=== PATIENT | male | born 1955 | race Caucasian/White ===

== ENCOUNTER 2023-05-07 09:33 | Emergency (ER) | payer MEDICARE, SELFPAY ==
[2023-05-07] VITALS (23 sets, daily range): BP systolic 124–204; BP diastolic 70–104; PULSE 105–119; TEMP 37.9; O2SAT 91–94; BMI 33.9
--- NOTE | 2023-05-07 10:09 | CRLHL7_ITS ---
For Patients: As a result of the Cures Act, medical imaging exams and procedure reports are released immediately into your electronic medical record. You may view this report before your referring provider. If you have questions, please contact your health care provider. INDICATION: right sided chest pain TECHNIQUE: Chest 2 views COMPARISON: None FINDINGS: Multilevel disc space narrowing and spurring throughout the thoracic spine. There is no fracture. Cardiac silhouette is not enlarged. No pleural effusion. Scarring at the right lateral lung. No consolidative density. Mild prominence of the bronchial live. IMPRESSION: Bronchiolitis suspected bilaterally with chronic appearing scarring at the right lateral lung. No CHF or pneumothorax. Dictated by Marvin Godinez MD @ 05/07/2023 10:53:41 AM (Electronically Signed)
[2023-05-07 10:36] LABS: PCR FLU A Negative PCR FLU A (Negative); PCR FLU B Negative PCR FLU B (Negative); PCR RSV Negative PCR RSV (Negative)
[2023-05-07 10:39] LABS: SARS PCR* POSITIVE SARS-CoV-2 (Negative)
[2023-05-07 10:52] LABS: Lactate* 1.2 mmol/L (0.5-1.9)
[2023-05-07] MEDS: 0.9 % SODIUM CHLORIDE 1000 ml 1,000 ML IV (10:53)
[2023-05-07 10:55] LABS: Basophils Absolute Auto 0.02 K/uL (0.00-0.30); Basophils Percent Auto 0.3 % (0.0-3.0); Eosinophils Absolute Auto 0.18 K/uL (0.00-0.50); Eosinophils Percent Auto 2.4 % (0.0-7.0); Hemoglobin* 16.2 gm/dL (13.5-17.5); Immature Granulocytes Abs Auto 0.02 K/uL (0.00-0.30); Immature Granulocytes Pct Auto 0.3 %; Lymphocytes Percent Auto 5.2 % (20-44); Mean Corpuscular HGB Conc 32 gm/dL (32-36); Mean Corpuscular Hemoglobin 29 pg (26-34); Mean Corpuscular Volume 89 fL (80-100); Neutrophils Percent Auto 79.8 % (42.0-72.0); Platelet Count* 172 K/uL (140-440); RDW Coefficient of Variation % 12.8 % (11.5-15.5); Red Blood Count 5.63 m/uL (4.30-5.90)
[2023-05-07 10:56] LABS: Appearance Urine Clear (Clear); Bilirubin Urine Negative (Negative); Blood Urine 2+ (Negative); Color Urine Yellow (Yellow); Glucose Urine Negative (Negative); Ketones Urine Negative (Negative); Leukocyte Esterase Urine Negative (Negative); Nitrite Urine Negative (Negative); Protein Urine 3+ (Negative); Specific Gravity Urine >= 1.030 (1.000-1.030); Urobilinogen Urine 0.2 (0.2-1.0); pH Urine 7.5 (5.0-8.5)
[2023-05-07] MEDS: IPRAT-ALBUT 0.5-2.5 MG/3 ML NEB 1 NEB IH (10:57)
[2023-05-07 10:59] LABS: Slide Review Reflex No
[2023-05-07 11:01] LABS: Troponin, Point-of-Care* 0.01 ng/ml (0.01-0.04)
[2023-05-07 11:09] LABS: WBC Urine 0-2 (0-5)
[2023-05-07 11:12] LABS: INR 0.97 (0.91-1.10); Prothrombin Time 13.4 Seconds
[2023-05-07 11:13] LABS: Partial Thromboplastin Time* 25 Seconds (23-33)
[2023-05-07 11:16] LABS: D Dimer Quantitative* 1.81 ug/ml (0.00-0.50)
[2023-05-07 11:22] LABS: Chloride* 103 mmol/L (96-114); Sodium* 138 mmol/L (135-149)
[2023-05-07 11:23] LABS: Albumin* 4.8 g/dL (3.3-5.0)
[2023-05-07 11:26] LABS: Alanine Aminotransferase* 39 U/L (4-50); Alkaline Phosphatase* 102 U/L (40-150); Anion Gap 8 mEq/L (7-15); Aspartate Amino Transferase* 44 U/L (12-35); Bilirubin Total* 1.2 mg/dL (0.1-1.5); Blood Urea Nitrogen* 15 mg/dL (7-30); Calcium* 9.5 mg/dL (8.4-10.6); Carbon Dioxide* 27 mmol/L (20-32); Creatinine* 0.9 mg/dL (0.5-1.5); Estimated Glomerular Filt Rate 93 ml/min; Glucose* 105 mg/dL (60-115); Lipase* 205 U/L (23-300); Total Protein* 8.3 g/dL (6.0-8.3)
--- NOTE | 2023-05-07 11:27 | ED_ITS ---
HPI - General Adult General Date Seen: 05/07/23 Chief complaint: Hypertension Stated complaint: BP 192/91 Time Seen by Provider: 05/07/23 09:36 Source: patient and family Mode of arrival: ambulatory Limitations: no limitations History of Present Illness HPI narrative: Patient is a 60-year-old gentleman visiting from [place], who has been sick for the past couple days, he noted that his blood pressure is elevated in the 190 range this morning, felt dizzy for the last 2 days, slight cough, and right- sided chest discomfort associated with this. History of previous pneumonia on the right-sided then had undergo a right-sided lung surgery for this. In the past. Does have a history of smoking in the past is quit for the last 5 years, no history of a previous cardiac issues, but does have a history of hypertension. They checked his COVID status yesterday, at home this was negative, brought in by his daughter in his son. He is here for a school reunion. Does have a cough, which she tells me is quite bad, does occasionally use inhaler. No history of COVID in the past, and is unsure about his vaccination status. Notes right-sided chest discomfort when he breathes or takes a deep breath in, maybe a little bit in his right upper quadrant of his abdomen also. No history of previous cholecystectomy. Associated symptoms: chest pain, cough, fever/chills, loss of appetite, malaise and weakness Related Data Home Medications Medication Instructions Recorded Confirmed Vitamin D3 05/07/23 amlodipine 10 mg tablet 10 mg PO DAILY 05/07/23 05/07/23 aspirin 81 mg tablet,delayed 81 mg PO DAILY 05/07/23 05/07/23 release (Adult Aspirin Regimen) atorvastatin 40 mg tablet 40 mg PO DAILY 05/07/23 05/07/23 carvedilol 3.125 mg tablet 3.125 mg PO BID 05/07/23 05/07/23 garlic 05/07/23 isosorbide mononitrate 30 mg 30 mg PO DAILY 05/07/23 05/07/23 tablet,extended release 24 hr losartan 25 mg tablet (Cozaar) 25 mg PO DAILY 05/07/23 05/07/23 multivitamin (Daily Multi-Vitamin 1 tab PO DAILY 05/07/23 05/07/23 tablet) tamsulosin 0.4 mg capsule 0.4 mg PO DAILY 05/07/23 05/07/23 Previous Rx's Medication Instructions Recorded albuterol sulfate 90 mcg/actuation 2 puff inhalation QID #8.5 grams 05/07/23 aerosol inhaler (ProAir HFA) cefuroxime axetil 500 mg tablet 500 mg PO BID 10 days #20 tabs 05/07/23 nirmatrelvir 300 mg (150 mg See Rx Instructions PO .COMPLEX 05/07/23 x2)-ritonavir 100 mg tablet,dose #30 ea pack (Paxlovid) prednisone 20 mg tablet 20 mg PO BID #10 tabs 05/07/23 Allergies Allergy/AdvReac Type Severity Reaction Status Date / Time No Known Drug Allergies Allergy Verified 05/07/23 13:08 Review of Systems Status of ROS: Reports: 10 or more systems reviewed and unremarkable except as noted in History and below [facility] Social History Smoking Status: Former smoker How often do you have a drink containing alcohol: monthly or less AUDIT-C Alcohol total score: 1 Non-prescribed substance use: marijuana (any form) Exam Narrative: Exam Narrative: Patient is seen in room 5, he is speaking to me in full sentences, is pupils are equal round reactive to light his TMs are normal his oropharynx normal, he has expiratory wheezes occasionally in all lung toscano, heart sounds are normal no clicks murmurs or gallops, no significant tachypnea, or increased work of breathing, mild right-sided upper abdomen tenderness with no organomegaly, abdomen shows no evidence of significant tenderness, negative Samano sign, no masses noted, no CVA tenderness, no normal inguinal regions with normal male genitalia, he moves extremities independently well no evidence of any swelling, pulses are normal is lower extremities, and no evidence of redness or rashes. Neurologically intact in his upper lower extremities. Const: Vital Signs, click to edit/add: Vital Signs - 24 hr 05/07/23 09:36 05/07/23 09:52 05/07/23 09:53 Temperature 100.2 F H Pulse Rate 106 H 108 H Pulse Rate [Pulse Oximeter] 115 H Blood Pressure 195/94 H Blood Pressure [Ri ght Upper Arm] 204/100 H Pulse Oximetry 93 93 94 Oxygen Delivery Me thod Room Air 05/07/23 10:00 05/07/23 10:02 05/07/23 10:08 Temperature Pulse Rate 115 H 110 H Pulse Rate [Pulse Oximeter] Blood Pressure 199/104 H Blood Pressure [Ri ght Upper Arm] Pulse Oximetry 94 94 92 Oxygen Delivery Me thod 05/07/23 10:30 05/07/23 10:32 05/07/23 11:00 Temperature Pulse Rate 108 H 112 H 107 H Pulse Rate [Pulse Oximeter] Blood Pressure 195/87 H Blood Pressure [Ri ght Upper Arm] Pulse Oximetry 93 92 94 Oxygen Delivery Me thod 05/07/23 11:30 05/07/23 11:32 05/07/23 11:33 Temperature Pulse Rate 114 H 114 H 112 H Pulse Rate [Pulse Oximeter] Blood Pressure 180/94 H Blood Pressure [Ri ght Upper Arm] Pulse Oximetry 92 92 93 Oxygen Delivery Me thod 05/07/23 12:00 05/07/23 12:02 05/07/23 12:35 Temperature Pulse Rate 115 H 119 H 109 H Pulse Rate [Pulse Oximeter] Blood Pressure 124/98 H Blood Pressure [Ri ght Upper Arm] Pulse Oximetry 92 92 92 Oxygen Delivery Me thod 05/07/23 13:10 05/07/23 13:32 05/07/23 13:45 Temperature Pulse Rate 112 H 113 H Pulse Rate [Pulse Oximeter] Blood Pressure 157/81 H Blood Pressure [Ri ght Upper Arm] Pulse Oximetry 92 91 Oxygen Delivery Me thod 05/07/23 14:00 05/07/23 14:02 05/07/23 14:03 Temperature Pulse Rate 112 H 110 H 110 H Pulse Rate [Pulse Oximeter] Blood Pressure 141/70 H Blood Pressure [Ri ght Upper Arm] Pulse Oximetry 92 92 92 Oxygen Delivery Me thod 05/07/23 14:30 05/07/23 14:32 Temperature Pulse Rate 108 H 105 H Pulse Rate [Pulse Oximeter] Blood Pressure 150/79 H Blood Pressure [Ri ght Upper Arm] Pulse Oximetry 93 91 Oxygen Delivery Me thod Documenting provider has reviewed patient's vital signs: yes Course Course ED Course: I spoke to below patient, and daughter. I do recommend that they take the Paxil of it, I did check with interaction supervisor food checkers and cashiers, ( liver pool) prednisone and also Ceftin were given, for as medications for his COPD flare, I gave a prescription for an inhaler also. I do recommend that he follow up with primary care physician when he gets home. From his visit here with his daughter. He is still having symptoms, he will need follow-up, there were some mildly enlarged lymph nodes noted on his CT scan, I do recommend that he follow up with his provider in consider getting a CT scan in 3 months to assess the stability of these. He was comfortable this, I went over the medications that he should hold, including is amlodipine, and also his atorvastatin while he is on the Paxlovid. He should know that he is contagious, and was planning on going to a reunion, we do recommend that she wait from time of start of illness, 10 total days. Return here if increasing chest pain shortness of breath or other issues. Vital Signs Vital signs: Initial Vital Signs Temperature 100.2 F H 05/07/23 09:36 Temperature Source Temporal Artery Scan 05/07/23 09:36 Pulse Rate 115 H 05/07/23 09:36 Blood Pressure 204/100 H 05/07/23 09:36 Blood Pressure Mean 134 H 05/07/23 09:36 Blood Pressure Position Sitting 05/07/23 09:36 Pulse Oximetry 93 05/07/23 09:36 Oxygen Delivery Method Room Air 05/07/23 09:36 Vital Signs Temperature 100.2 F H 05/07/23 09:36 Pulse Rate 115 H 05/07/23 09:36 Blood Pressure 204/100 H 05/07/23 09:36 Pulse Oximetry 93 05/07/23 09:36 Oxygen Delivery Method Room Air 05/07/23 09:36 Temperature 100.2 F H 05/07/23 09:36 Pulse Rate 105 H 05/07/23 14:32 Blood Pressure 150/79 H 05/07/23 14:32 Pulse Oximetry 91 05/07/23 14:32 Oxygen Delivery Method Room Air 05/07/23 09:36 Medical Decision Making MDM Narrative Medical decision making narrative: During the evaluation of this patient I considered multiple differential diagnosis is. The life-threatening differential diagnosis include coronary disease/IA, pulmonary embolism, pneumothorax, pneumonia, and aortic dissection. Other differential diagnosis included but were not limited to pericarditis, myocarditis, chest wall pain, GERD, esophageal rupture, rib fracture contusion, pleurisy, as well as other etiologies. Lab Data Lab results reviewed: Yes I reviewed the patient's lab results Labs: Lab Results 05/07/23 05/07/23 05/07/23 Range/Units 09:42 10:39 10:48 WBC 7.50 (4.50-11.00) K/uL RBC 5.63 (4.30-5.90) m/uL Hgb 16.2 (13.5-17.5) gm/dL Hct 50.0 (37.0-53.0) % MCV 89 (80-100) fL MCH 29 (26-34) pg MCHC 32 (32-36) gm/dL RDW Coeff of Pepper 12.8 (11.5-15.5) % Plt Count 172 (140-440) K/uL Neut % (Auto) 79.8 H (42.0-72.0) % Lymph % (Auto) 5.2 L (20-44) % Haines % (Auto) 12.0 H (0.0-11.0) % Eos % (Auto) 2.4 (0.0-7.0) % Baso % (Auto) 0.3 (0.0-3.0) % Neut # (Auto) 6.00 (1.7-7.0) K/uL Lymph # (Auto) 0.40 L (0.90-2.90) K/uL Haines # (Auto) 0.90 (0.00-0.90) K/UL Eos # (Auto) 0.18 (0.00-0.50) K/uL Baso # (Auto) 0.02 (0.00-0.30) K/uL Abs Immat Gran (auto) 0.02 (0.00-0.30) K/uL Imm/Tot Granulo (auto) 0.3 % INR 0.97 (0.91-1.10) APTT 25 (23-33) Seconds D-Dimer Quant (PE/DVT) 1.81 H (0.00-0.50) ug/ml Sodium 138 (135-149) mmol/L Potassium 4.0 (3.6-5.1) mmol/L Chloride 103 (96-114) mmol/L Carbon Dioxide 27 (20-32) mmol/L Anion Gap 8 (7-15) mEq/L BUN 15 (7-30) mg/dL Creatinine 0.9 (0.5-1.5) mg/dL Estimated Creat Clear 63.80 Estimated GFR 93 ml/min Glucose 105 (60-115) mg/dL Lactate 1.2 (0.5-1.9) mmol/L Calcium 9.5 (8.4-10.6) mg/dL Total Bilirubin 1.2 (0.1-1.5) mg/dL Direct Bilirubin 0.0 (0.0-0.5) mg/dL AST 44 H (12-35) U/L ALT 39 (4-50) U/L Alkaline Phosphatase 102 (40-150) U/L C-Reactive Protein 3.0 H (0.5-1.0) mg/dL NT-Pro-B Natriuret Pep 213 pg/mL Total Protein 8.3 (6.0-8.3) g/dL Albumin 4.8 (3.3-5.0) g/dL Lipase 205 (23-300) U/L Procalcitonin 0.07 (<0.50) ng/mL Urine Color (Yellow) Urine Appearance (Clear) Urine pH (5.0-8.5) Ur Specific Norphlet (1.000-1.030) Urine Protein (Negative) Urine Glucose (UA) (Negative) Urine Ketones (Negative) Urine Blood (Negative) Urine Nitrite (Negative) Urine Bilirubin (Negative) Urine Urobilinogen (0.2-1.0) Ur Leukocyte Esterase (Negative) Urine RBC (0-2) Urine WBC (0-5) Ur Squamous Epith Cells (None-Few) Urine Bacteria (None) SARS-CoV-2 (PCR) POSITIVE SARS-CoV-2 A (Negative) Influenza Type A (PCR) Negative PCR FLU A (Negative) Influenza Type B (PCR) Negative PCR FLU B (Negative) RSV (PCR) Negative PCR RSV (Negative) POC Troponin I 0.01 (0.01-0.04) ng/ml 05/07/23 05/07/23 Range/Units 14:45 Unknown WBC (4.50-11.00) K/uL RBC (4.30-5.90) m/uL Hgb (13.5-17.5) gm/dL Hct (37.0-53.0) % MCV (80-100) fL MCH (26-34) pg MCHC (32-36) gm/dL RDW Coeff of Pepper (11.5-15.5) % Plt Count (140-440) K/uL Neut % (Auto) (42.0-72.0) % Lymph % (Auto) (20-44) % Haines % (Auto) (0.0-11.0) % Eos % (Auto) (0.0-7.0) % Baso % (Auto) (0.0-3.0) % Neut # (Auto) (1.7-7.0) K/uL Lymph # (Auto) (0.90-2.90) K/uL Haines # (Auto) (0.00-0.90) K/UL Eos # (Auto) (0.00-0.50) K/uL Baso # (Auto) (0.00-0.30) K/uL Abs Immat Gran (auto) (0.00-0.30) K/uL Imm/Tot Granulo (auto) % INR (0.91-1.10) APTT (23-33) Seconds D-Dimer Quant (PE/DVT) (0.00-0.50) ug/ml Sodium (135-149) mmol/L Potassium (3.6-5.1) mmol/L Chloride (96-114) mmol/L Carbon Dioxide (20-32) mmol/L Anion Gap (7-15) mEq/L BUN (7-30) mg/dL Creatinine (0.5-1.5) mg/dL Estimated Creat Clear Estimated GFR ml/min Glucose (60-115) mg/dL Lactate (0.5-1.9) mmol/L Calcium (8.4-10.6) mg/dL Total Bilirubin (0.1-1.5) mg/dL Direct Bilirubin (0.0-0.5) mg/dL AST (12-35) U/L ALT (4-50) U/L Alkaline Phosphatase (40-150) U/L C-Reactive Protein (0.5-1.0) mg/dL NT-Pro-B Natriuret Pep pg/mL Total Protein (6.0-8.3) g/dL Albumin (3.3-5.0) g/dL Lipase (23-300) U/L Procalcitonin (<0.50) ng/mL Urine Color Yellow (Yellow) Urine Appearance Clear (Clear) Urine pH 7.5 (5.0-8.5) Ur Specific Norphlet >= 1.030 (1.000-1.030) Urine Protein 3+ A (Negative) Urine Glucose (UA) Negative (Negative) Urine Ketones Negative (Negative) Urine Blood 2+ A (Negative) Urine Nitrite Negative (Negative) Urine Bilirubin Negative (Negative) Urine Urobilinogen 0.2 (0.2-1.0) Ur Leukocyte Esterase Negative (Negative) Urine RBC 10-25 A (0-2) Urine WBC 0-2 (0-5) Ur Squamous Epith Cells None (None-Few) Urine Bacteria None (None) SARS-CoV-2 (PCR) (Negative) Influenza Type A (PCR) (Negative) Influenza Type B (PCR) (Negative) RSV (PCR) (Negative) POC Troponin I 0.02 (0.01-0.04) ng/ml Imaging Data CT scan - chest: Attestation: I have reviewed the pertinent imaging results. My impression: No acute changes Radiologist's impression: Patient: PRASANNA VICENTE Facility: [facility] Site . Site : 1955 Study: CT Chest Angio 95CC ISOVUE 370-05/07/2023 1:13:40 PM Ordering Physician: Alyson Turner Final Report: INDICATION: Short of breath, elevated D-dimer, Covid positive, history of lung cancer. TECHNIQUE: CT chest PE was acquired with 95 cc Isovue 370 IV contrast. Multiplanar reformats included. Maximum intensity projection in axial plane was also included to help with the detection of both pulmonary nodules and pulmonary emboli. COMPARISON: Same day chest radiograph. FINDINGS: Heart and vasculature: Contrast opacification of the pulmonary arterial tree is adequate. No sign of pulmonary embolism. Heart size is normal. Thoracic aorta and pulmonary artery are normal in caliber. Atherosclerotic calcifications of the coronary arteries and aortic arch. The proximal left main coronary artery is well opacified by contrast without embolus or thrombus seen. Lungs and pleura: Expiratory phase imaging. No tracheal or endobronchial abnormalities. Mild diffuse central bronchial thickening. Wedge resection in the posteromedial right upper lobe. Associated distortion and tethering without any worrisome nodular masslike thickening along the scar site. Pleural thickening with some early rounded atelectasis in the right lower lobe laterally. Minimal scarring in the lingula. No worrisome nodules or masses. No consolidations. No pleural effusion or pneumothorax. Lymph nodes/mediastinum: Lower right paratracheal lymph node measures 1.3 x 2.5 cm (series 4, image 62. Few mildly prominent left lower paratracheal lymph nodes and periaortic lymph nodes. No enlarged or worrisome appearing hilar or axillary lymph nodes. Chest wall: No masses. Upper abdomen: No acute or significant findings. Bones: Unremarkable for age. IMPRESSION: 1. No pulmonary embolus. 2. Postsurgical lungs without acute consolidations or opacification. Mild bronchial wall thickening may indicate airways infection. 3. Mildly enlarged right paratracheal lymph node, with other mildly prominent me diastinal lymph nodes. Recommend comparison with any available prior imaging from outside facilities. Please note that all CT scans at this facility use dose modulation, iterative reconstruction, and/or weight-based dosing when appropriate to reduce radiation dose to as low as reasonably achievable. Dictated by Kristan Daly MD @ 05/07/2023 3:29:31 PM (Electronic Signature) ECG Data Attestation: I personally reviewed and interpreted this ECG as follows: Prior ECG tracings: available for review Interpretation: EKG shows sinus tachycardia at 109, flipped T-waves in noted inferiorly in 2 3 and AVF, mild T-wave abnormality is noted T5 and T6, assessment and abnormal EKG, no previous EKG to compare to Discharge Plan Discharge Clinical Impression: COVID, COPD (chronic obstructive pulmonary disease) Patient Disposition: Home w/ Parent or Adult Condition: Stable Instructions: Wheezing (ED), COVID-19 (Coronavirus Disease 2019) (ED), COVID-19 and Chronic Health Conditions (ED), Face Coverings (Masks) and COVID-19 (ED), Social Distancing Guidelines for COVID-19 (ED) Additional Instructions: Home, rest, use of medications as directed, we will place you on some prednisone, along with the Ceftin antibiotic. Maybe some also bacterial pneumonia also. The COVID should improve with the treatment medications. I would suggest holding your amlodipine and also your atorvastatin. Both of these medications interact with the Paxlovid. Know that your contagious, until 5 days after you finish the Paxlovid. recheck with primary in 10 days after. Return if increasing chest pain shortness of breath or other issues. Activity Level: Light activity Prescriptions: New Paxlovid 300 mg (150 mg x 2)-100 mg tablets,dose pack See Rx Instructions .ROUTE .COMPLEX Qty: 30 0RF Rx Instructions: take TWO 150 mg tablets of nirmatrelvir with ONE 100 mg tablet of ritonavir twice daily for 5 days prednisone 20 mg tablet 20 mg PO BID Qty: 10 0RF cefuroxime axetil 500 mg tablet 500 mg PO BID 10 Days Qty: 20 0RF albuterol sulfate [ProAir HFA] 90 mcg/actuation HFA aerosol inhaler 2 puff inhalation QID Qty: 8.5 2RF No Action losartan [Cozaar] 25 mg tablet 25 mg PO DAILY atorvastatin 40 mg tablet 40 mg PO DAILY isosorbide mononitrate 30 mg tablet extended release 24 hr 30 mg PO DAILY carvedilol 3.125 mg tablet 3.125 mg PO BID Rx Instructions: must administer with a meal/food amlodipine 10 mg tablet 10 mg PO DAILY tamsulosin 0.4 mg capsule 0.4 mg PO DAILY aspirin [Adult Aspirin Regimen] 81 mg tablet,delayed release (DR/EC) 81 mg PO DAILY garlic Vitamin D3 multivitamin [Daily Multi-Vitamin] Tablet 1 tab PO DAILY Follow Up/Referrals: Provider,Not a Local [Primary Care Provider] - Stand Alone Forms: xPeerientth Info Instructions
[2023-05-07 11:43] LABS: NT Pro B Type NatriureticPept* 213 pg/mL; Procalcitonin* 0.07 ng/mL (<0.50)
--- NOTE | 2023-05-07 12:04 | CRLHL7_ITS ---
For Patients: As a result of the Century Cures Act, medical imaging exams and procedure reports are released immediately into your electronic medical record. You may view this report before your referring provider. If you have questions, please contact your health care provider. INDICATION: Short of breath, elevated D-dimer, Covid positive, history of lung cancer. TECHNIQUE: CT chest PE was acquired with 95 cc Isovue 370 IV contrast. Multiplanar reformats included. Maximum intensity projection in axial plane was also included to help with the detection of both pulmonary nodules and pulmonary emboli. COMPARISON: Same day chest radiograph. FINDINGS: Heart and vasculature: Contrast opacification of the pulmonary arterial tree is adequate. No sign of pulmonary embolism. Heart size is normal. Thoracic aorta and pulmonary artery are normal in caliber. Atherosclerotic calcifications of the coronary arteries and aortic arch. The proximal left main coronary artery is well opacified by contrast without embolus or thrombus seen. Lungs and pleura: Expiratory phase imaging. No tracheal or endobronchial abnormalities. Mild diffuse central bronchial thickening. Wedge resection in the posteromedial right upper lobe. Associated distortion and tethering without any worrisome nodular masslike thickening along the scar site. Pleural thickening with some early rounded atelectasis in the right lower lobe laterally. Minimal scarring in the lingula. No worrisome nodules or masses. No consolidations. No pleural effusion or pneumothorax. Lymph nodes/mediastinum: Lower right paratracheal lymph node measures 1.3 x 2.5 cm (series 4, image 62. Few mildly prominent left lower paratracheal lymph nodes and periaortic lymph nodes. No enlarged or worrisome appearing hilar or axillary lymph nodes. Chest wall: No masses. Upper abdomen: No acute or significant findings. Bones: Unremarkable for age. IMPRESSION: 1. No pulmonary embolus. 2. Postsurgical lungs without acute consolidations or opacification. Mild bronchial wall thickening may indicate airways infection. 3. Mildly enlarged right paratracheal lymph node, with other mildly prominent mediastinal lymph nodes. Recommend comparison with any available prior imaging from outside facilities. Please note that all CT scans at this facility use dose modulation, iterative reconstruction, and/or weight-based dosing when appropriate to reduce radiation dose to as low as reasonably achievable. Dictated by Kristan Daly MD @ 05/07/2023 3:29:31 PM (Electronically Signed)
[2023-05-07] MEDS: 0.9 % SODIUM CHLORIDE 500 ML 500 ML IV (12:37)
[2023-05-07] MEDS: ACETAMINOPHEN 500 MG TABLET 1000 MG PO (13:16)
[2023-05-07 15:15] LABS: Troponin, Point-of-Care* 0.02 ng/ml (0.01-0.04)
== END 2023-05-07 15:58 | disposition home or self-care (01) ==
PROVIDERS: Emergency Provider Family Medicine
DX: U07.1 COVID-19 (principal); J44.9 Chronic obstructive pulmonary disease, unspecified
CPT/HCPCS: 36415; 71046; 71275; 80048; 80076; 81001; 83605; 83690; 83880; 84145; 84484; 85025; 85379; 85610; 85730; 86140; 87040; 87631; 93005; 94640; 94761; 96360; 96361; 99284; 99285; A9270; J7030; J7120; Q9967

== ENCOUNTER 2024-01-28 11:43 | Emergency (ER) | payer MEDICARE, SELFPAY ==
[2024-01-28] VITALS (24 sets, daily range): BP systolic 145–169; BP diastolic 74–90; PULSE 59–102; RESP 18; TEMP 36.7; O2SAT 94–98; BMI 33.1
--- NOTE | 2024-01-28 12:01 | ED.DIZZY ---
HPI - Dizziness General Time Seen by Provider: 12:01 Date Seen: 01/28/24 Chief Complaint: Dizziness/Vertigo Stated Complaint: dizzy, hypertension Time Seen by Provider: 01/28/24 11:57 Source: patient, RN notes reviewed and old records reviewed Mode of arrival: ambulatory Limitations: no limitations History of Present Illness HPI Narrative: This 69-year-old male is referred from urgent care with concern of wanting to fall to the left side type feeling and dizziness for about 2 days now. [place], originally from here. He is felt this way for at least 2 days now. He baseline has tinnitus in both ears, unchanged. He states he had a similar episode about 20 years ago which was attributed to his hypertension. His blood pressures been more elevated outpatient recently, 180s over 90s. He is not fall in because of this, no trauma because of this. He has had some underlying palpitations and did just complete some cardiac monitoring when he was at home. He takes an 81 mg aspirin daily but is not on blood thinners otherwise. No recent cough cold symptoms, no chest pain or palpitations currently. He reportedly had an EKG showing sinus rhythm in urgent care but it is not scanned in. He had a normal hemoglobin of 13.5, normal white blood count of 8470, normal platelet count of 133774, normal sodium of 143, normal potassium of 4.1, normal chloride of 107, normal bicarb of 27, normal BUN of 19, normal creatinine of 1.1, normal ionized calcium of 1.23 and normal glucose of 117 while at urgent care. In her examination, she noted no nystagmus his heart rate was regular and no murmur. She felt his gait was abnormal. There is no prior history of stroke, TIA or heart attack. His maternal side of the family has significant cardiac history. Denies any visual changes with this. Patient does have visible appearing symmetrical proptosis but denies any history of thyroid disease. He does take a baby aspirin daily but otherwise on no blood thinners. When he is up he feels like he is listing to the left. If he turns his head or moves, will feel a spinning sensation. For example, when he laid on the table in Urgent Care, the movement laying back made him see that the ceiling was spinning. He will get a little relief if he closes his eyes in lays still. MD elicited complaint: vertigo and disequilibrium Related Data Home Medications ?Medication ?Instructions ?Recorded ?Confirmed Vitamin D3 3,000 unit PO DAILY 05/07/23 01/28/24 aspirin 81 mg tablet,delayed 81 mg PO DAILY 05/07/23 01/28/24 release (Adult Aspirin Regimen) atorvastatin 40 mg tablet 40 mg PO DAILY 05/07/23 01/28/24 garlic 3,000 unit PO DAILY 05/07/23 01/28/24 isosorbide mononitrate 30 mg 30 mg PO DAILY 05/07/23 01/28/24 tablet,extended release 24 hr losartan 25 mg tablet (Cozaar) 25 mg PO DAILY 05/07/23 01/28/24 multivitamin (Daily Multi-Vitamin 1 tab PO DAILY 05/07/23 01/28/24 tablet) tamsulosin 0.4 mg capsule 0.4 mg PO DAILY 05/07/23 01/28/24 amlodipine 10 mg tablet 5 mg PO DAILY 01/28/24 01/28/24 cinnamon bark 500 mg capsule 1,000 mg PO QDAY 01/28/24 01/28/24 (Cinnamon) metoprolol succinate 50 mg 50 mg PO DAILY 01/28/24 01/28/24 tablet,extended release 24 hr nitroglycerin 0.4 mg sublingual 0.4 mg sublingual PRN 01/28/24 01/28/24 tablet testosterone 1 % (25 mg/2.5 gram) 1 packet transdermal 01/28/24 01/28/24 transdermal gel packet tramadol 50 mg tablet 50 mg PO BID PRN 01/28/24 01/28/24 Previous Rx's ?Medication ?Instructions ?Recorded albuterol sulfate 90 mcg/actuation 2 puff inhalation QID #8.5 grams 05/07/23 aerosol inhaler (ProAir HFA) meclizine 25 mg tablet 25 mg PO TID PRN #15 tabs 01/28/24 Allergies Allergy/AdvReac Type Severity Reaction Status Date / Time cortisone Allergy Mild itchy eyes Verified 01/28/24 11:53 and red face Review of Systems Status of ROS: Reports: 6 or more systems reviewed and unremarkable except as noted in History and below [facility] Medical History (Updated 01/28/24 @ 15:43 by Jade King MD) Hypertension ?I10 - Essential (primary) hypertension (ICD-10) Social History Smoking Status: Former smoker How often do you have a drink containing alcohol: monthly or less AUDIT-C Alcohol total score: 1 Non-prescribed substance use: marijuana (any form) Exam Const: Vital Signs, click to edit/add: Vital Signs - 24 hr 01/28/24 11:45 01/28/24 11:58 01/28/24 11:59 Temperature 98.1 F Pulse Rate 62 63 Pulse Rate [Pulse Oximeter] 102 H Respiratory Rate 18 Blood Pressure 169/82 H Blood Pressure [Ri ght Upper Arm] 164/74 H Pulse Oximetry 98 94 97 Oxygen Delivery Me thod Room Air 01/28/24 12:00 01/28/24 12:02 01/28/24 12:03 Temperature Pulse Rate 62 63 61 Pulse Rate [Pulse Oximeter] Respiratory Rate Blood Pressure 160/77 H Blood Pressure [Ri ght Upper Arm] Pulse Oximetry 96 95 97 Oxygen Delivery Me thod 01/28/24 12:09 01/28/24 12:15 01/28/24 12:38 Temperature Pulse Rate 61 61 Pulse Rate [Pulse Oximeter] Respiratory Rate Blood Pressure Blood Pressure [Ri ght Upper Arm] Pulse Oximetry 97 97 97 Oxygen Delivery Me thod 01/28/24 12:45 01/28/24 13:00 01/28/24 13:02 Temperature Pulse Rate 61 59 L 61 Pulse Rate [Pulse Oximeter] Respiratory Rate Blood Pressure 148/81 H Blood Pressure [Ri ght Upper Arm] Pulse Oximetry 97 97 96 Oxygen Delivery Me thod 01/28/24 13:03 01/28/24 14:15 01/28/24 14:17 Temperature Pulse Rate 63 Pulse Rate [Pulse Oximeter] Respiratory Rate Blood Pressure 157/87 H Blood Pressure [Ri ght Upper Arm] Pulse Oximetry 97 96 Oxygen Delivery Me thod 01/28/24 14:51 01/28/24 14:52 01/28/24 15:00 Temperature Pulse Rate 63 68 59 L Pulse Rate [Pulse Oximeter] Respiratory Rate Blood Pressure 154/81 H Blood Pressure [Ri ght Upper Arm] Pulse Oximetry 95 96 96 Oxygen Delivery Me thod 01/28/24 15:01 Temperature Pulse Rate 59 L Pulse Rate [Pulse Oximeter] Respiratory Rate Blood Pressure 145/83 H Blood Pressure [Ri ght Upper Arm] Pulse Oximetry 95 Oxygen Delivery Me thod Jr is alert, interactive, no apparent distress. Symmetrical facial function, eyes do seem symmetrically proptotic. One to 2 beats of lateral nystagmus on each lateral gaze but has conjugate gaze. No visual disturbances. Speech is normal. Neck supple, no adenopathy, seems to have symmetrical carotid pulses, do not hear any bruits. Lungs clear without any wheezing or crackles, no tachypnea. Speech is normal. CV regular rate and rhythm, no murmur. Abdomen is soft, no rebound or guarding, no organomegaly. Has no resting tremors. Can lift each leg off the bed and hold it. No lower extremity sensory loss. Good strength throughout the ankles and feet. Arms with 5/5 symmetrical strength from shoulders down to fingers. Normal sensation in the arms. He has normal finger to nose without any drift or dysmetria. Skin visualized without any rash, skin is warm and dry. Documenting provider has reviewed patient's vital signs: yes Course Course ED Course: Have ordered head CT and CT angio of head and neck. Will get some other labs that have not been done in urgent care including PT PTT, liver panel. Reevaluation(s) Time of Reevaluation #1: 13:36 Reevaluation #1: Reviewed with patient that there is an old stroke in the thalamus on his head CT. I have paged stroke Neurology to talk about his case further, am going to hold on the CT angios at this time and see if they would rather proceed with MRI. He is wondering if he can eat, his symptoms have been present for over 2 days, will allow him to eat. Time of Reevaluation #2: 15:45 Reevaluation #2: Reviewed his MRI report showing no acute stroke. He does have chronic microvascular changes and the prior small stroke seen as on the CT. Patient wanted to know how old it might have been, reviewed with him that we have no way of aging it from the study. We discussed the need for ongoing risk factor modification and staying on an 81 mg aspirin. His blood pressure needs to be treated to goal recommendations, LDL should be under 70 for him. We discussed a peripheral vertigo, will try dose of meclizine. He plans on going back within the next week. He can consider physical therapy when he gets home if he still needs it. Consultations Consultation #1: Did speak with Dr. Salgado from stroke Neurology regarding this patient. Given old stroke, patient certainly needs aspirin and risk factor suppression/modification. MRI noncontrast can be done to rule out stroke, can try Tekoa-Hallpike maneuvers. If MRI is negative, patient can go home and be treated for peripheral vertigo process. Time: 14:04 Vital Signs Vital signs: Initial Vital Signs Temperature 98.1 F 01/28/24 11:45 Temperature Source Temporal Artery Scan 01/28/24 11:45 Pulse Rate 102 H 01/28/24 11:45 Respiratory Rate 18 01/28/24 11:45 Blood Pressure 164/74 H 01/28/24 11:45 Blood Pressure Mean 104 01/28/24 11:45 Blood Pressure Position Sitting 01/28/24 11:45 Pulse Oximetry 98 01/28/24 11:45 Oxygen Delivery Method Room Air 01/28/24 11:45 Vital Signs Temperature 98.1 F 01/28/24 11:45 Pulse Rate 102 H 01/28/24 11:45 Respiratory Rate 18 01/28/24 11:45 Blood Pressure 164/74 H 01/28/24 11:45 Pulse Oximetry 98 01/28/24 11:45 Oxygen Delivery Method Room Air 01/28/24 11:45 Temperature 98.1 F 01/28/24 11:45 Pulse Rate 59 L 01/28/24 15:01 Respiratory Rate 18 01/28/24 11:45 Blood Pressure 145/83 H 01/28/24 15:01 Pulse Oximetry 95 01/28/24 15:01 Oxygen Delivery Method Room Air 01/28/24 11:45 MDM - Dizziness Lab Data Attestation: I reviewed the patient's lab results. Labs: Lab Results 01/28/24 01/28/24 Range/Units 12:15 13:20 INR 0.96 (0.91-1.10) APTT 33 (23-33) Seconds Creatinine 1.0 (0.5-1.5) mg/dL Estimated Creat Clear 62.91 Estimated GFR 81 ml/min Magnesium 2.3 (1.5-2.6) mg/dL Total Bilirubin 1.3 (0.1-1.5) mg/dL Direct Bilirubin 0.3 (0.0-0.5) mg/dL AST 29 (12-35) U/L ALT 30 (4-50) U/L Alkaline Phosphatase 79 (40-150) U/L Troponin I < 0.01 L (0.01-0.04) ng/mL NT-Pro-B Natriuret Pep 207 pg/mL Total Protein 6.9 (6.0-8.3) g/dL Albumin 4.4 (3.3-5.0) g/dL TSH 0.976 (0.270-4.200) uIU/mL Lab Acknowledgement Test Added Imaging Data CT scan - head: Attestation: I have reviewed the pertinent imaging results. Radiologist's impression: Patient: JR VICENTE Facility:?[facility] Patient ID:?[id number] Site Patient ID:?[id number]. Site :?[id number] Study:?CT-Head WITHOUT-01/28/2024 12:37:54 PM Ordering Physician:Edy Hansen Final Report: INDICATION: Vertigo, disequilibrium TECHNIQUE: CT head without contrast. COMPARISON: None. FINDINGS: CSF spaces: Within normal limits for age. Brain parenchyma: The cruz-white differentiation is normal. No sign of mass, hemorrhage, or midline shift. Moderate low-density within the deep white matter. Old lacunar infarct within the right thalamus. Skull base and calvarium: The visualized paranasal sinuses and mastoid air cells demonstrate no acute or significant findings. Atherosclerosis. Mild bilateral proptosis. No skull fractures. IMPRESSION: 1. No intracranial bleed or mass effect. 2. Old right thalamic lacunar infarct with nonspecific white matter disease, likely microangiopathy. 3. Mild bilateral proptosis noted. Please note that all CT scans at this facility use dose modulation, iterative reconstruction, and/or weight-based dosing when appropriate to reduce radiation dose to as low as reasonably achievable. Dictated by Nilesh Blum MD @ 01/28/2024 1:09:46 PM (Electronic Signature) MR Brain: Attestation: I have reviewed the pertinent imaging results. Radiologist's impression: Patient: JR VICENTE Facility:?[facility] Patient ID:?[id number] Site Patient ID:?[id number]. Site :?1955 Study:?MRI-Head W/O-01/28/2024 3:14:09 PM Ordering Physician:Edy Hansen Final Report: Indication: Vertigo. Technique: Multiplanar, multisequence MRI of the brain was performed without intravenous contrast. Comparison: CT head 01/28/2024. Findings: Mild thinning of the corpus callosum. The pituitary gland clivus appear intact. Mild degenerative change visualized upper cervical spine. There is no restricted diffusion. No intracranial hemorrhage. The ventricles are proportionate to the cerebral sulci. The 4th ventricle appears midline. The basal cisterns appear patent. No abnormal extra-axial fluid collection identified. Mild parenchymal volume loss. Moderate T2 FLAIR hyperintense foci within the subcortical and periventricular white matter, favored to represent chronic ischemic microvascular disease. Small chronic lacunar infarct right thalamus. There is no intracranial mass, abnormal mass-effect or midline shift identified. Major intracranial vascular flow voids appear grossly intact. Both globes are preserved. Minimal paranasal sinus mucosal thickening. Impression: 1. No acute/subacute infarct. 2. Moderate chronic ischemic microvascular disease. 3. Small chronic right thalamic lacunar infarct. Dictated by Ty Jolly MD @ 01/28/2024 3:24:09 PM (Electronic Signature) ECG Data Attestation: I personally reviewed and interpreted this ECG as follows: (Normal sinus rhythm, 60 beats per minute. Q-waves V1 V2 without any acute ST or T-wave changes. No evidence of any acute ischemia. QT corrected 3 and 74 milliseconds.) ECG interpretation date: 01/28/24 ECG interpretation time: 12:38 Critical Care Time Critical Care Time Critical Care Time: No Discharge Plan Discharge Clinical Impression: Vertigo, Disequilibrium Patient Disposition: Home, Self-Care Condition: Stable Instructions: Vertigo (ED) Additional Instructions: Can try meclizine 25 mg up to 3 times a day as needed for your symptoms. This can be sedating, need to see how it affects you. Would not recommend operating machinery or driving if it makes you sedated. The MRI confirms that this is a peripheral ear process. Physical therapy can help in resolving this, can seek further evaluation when home if you have ongoing symptoms. You may expect that your symptoms may last for 1-2 weeks as this seems beyond benign paroxysmal peripheral vertigo and is likely a vestibulitis or labyrinthitis from the inner ear. There is no quick fix for this unfortunately and takes time to resolve. Take your MRI report to your primary clinic when you get home. Your LDL goal should be under 70, blood pressure should be treated to current goal recommendations. You need to stand an 81 mg aspirin daily. Activity Level: Activity as Tolerated Discharge Diet: Heart Healthy (2 gm sodium, low fat) Prescriptions: New meclizine 25 mg tablet 25 mg PO TID PRNQty: 15 0RF No Action metoprolol succinate 50 mg tablet extended release 24 hr 50 mg PO DAILY nitroglycerin 0.4 mg tablet, sublingual 0.4 mg sublingual PRN testosterone 1 % (25 mg/2.5gram) gel in packet 1 packet transdermal cinnamon bark [Cinnamon] 500 mg capsule 1,000 mg PO QDAY tramadol 50 mg tablet 50 mg PO BID PRN losartan [Cozaar] 25 mg tablet 25 mg PO DAILY atorvastatin 40 mg tablet 40 mg PO DAILY isosorbide mononitrate 30 mg tablet extended release 24 hr 30 mg PO DAILY tamsulosin 0.4 mg capsule 0.4 mg PO DAILY aspirin [Adult Aspirin Regimen] 81 mg tablet,delayed release (DR/EC) 81 mg PO DAILY garlic 3,000 unit PO DAILY Vitamin D3 3,000 unit PO DAILY multivitamin [Daily Multi-Vitamin] Tablet 1 tab PO DAILY albuterol sulfate [ProAir HFA] 90 mcg/actuation HFA aerosol inhaler 2 puff inhalation QID Qty: 8.5 2RF amlodipine 10 mg tablet 5 mg PO DAILY Follow Up/Referrals: Provider,Not a Local [Primary Care Provider] - Stand Alone Forms: [employer] Info Instructions
--- NOTE | 2024-01-28 12:09 | CRLHL7_ITS ---
For Patients: As a result of the Century Cures Act, medical imaging exams and procedure reports are released immediately into your electronic medical record. You may view this report before your referring provider. If you have questions, please contact your health care provider. INDICATION: Vertigo, disequilibrium TECHNIQUE: CT head without contrast. COMPARISON: None. FINDINGS: CSF spaces: Within normal limits for age. Brain parenchyma: The cruz-white differentiation is normal. No sign of mass, hemorrhage, or midline shift. Moderate low-density within the deep white matter. Old lacunar infarct within the right thalamus. Skull base and calvarium: The visualized paranasal sinuses and mastoid air cells demonstrate no acute or significant findings. Atherosclerosis. Mild bilateral proptosis. No skull fractures. IMPRESSION: 1. No intracranial bleed or mass effect. 2. Old right thalamic lacunar infarct with nonspecific white matter disease, likely microangiopathy. 3. Mild bilateral proptosis noted. Please note that all CT scans at this facility use dose modulation, iterative reconstruction, and/or weight-based dosing when appropriate to reduce radiation dose to as low as reasonably achievable. Dictated by Nilesh Blum MD @ 01/28/2024 1:09:46 PM (Electronically Signed)
--- OUTSIDE RECORDS SUMMARY | 2024-01-28 12:23 | XMS_ITS | Referral Summary ---
Author Organization [facility] Address [address] [place] [address] Care Team Providers Care Electric Motor Mechanic Name Role Phone Mitesh Benson Primary Care Provider [phone] Allergies Active Allergy Reactions Criticality Noted Date Comments Mushroom Pruritis (Itching) Low 06/20/2015 Wild mushrooms Medications Medication Sig Dispensed Refills Start Date End Date Status losartan-hydrochloro thiazide (HYZAAR) 50-12.5 mg per tablet Take 0.5 tablets by mouth daily Active Garlic 500 mg Cap Take 1,500 mg by mouth daily Active aspirin 81 mg EC tablet Take 81 mg by mouth daily Active tamsulosin (FLOMAX) 0.4 mg capsule Take 0.4 mg by mouth daily Active albuterol (PROVENTIL/VENTOLIN/ PROAIR) 90 mcg/actuation inhaler 2 puffs inhaled q4-6 hours prn SOB or wheezing 08/17/2015 Active atorvastatin (LIPITOR) 10 mg tablet Take 4 tablets (40 mg total) by mouth at bedtime 30 tablet 11 12/09/2015 Active metoprolol succinate (TOPROL-XL) 25 mg XL tablet Take 0.5 tablets (12.5 mg total) by mouth daily 30 tablet 11 12/09/2015 Active amLODIPine (NORVASC) 5 mg tablet 05/22/2016 Active GLUCOSAMINE HCL/CHONDR HARTLEY A NA (OSTEO BI-FLEX ORAL) Take by mouth A ctive Active Problems Problem Noted Date Diagnosed Date Sleep apnea Immunizations Name Administration Dates Next Due Tdap 06/20/2015 Social History Tobacco Use Types Packs/Day Years Used Date Smoking Tobacco: Every Day Cigarettes 0.5 54 Smokeless Tobacco: Never Alcohol Use Standard Drinks/Week Comments No 0 (1 standard drink = 0.6 oz pur e alcohol) Sex and Gender Information Value Date Recorded Sex Assigned at Not on file Gender Identity Not on file Sexual Orientation Not on file Last Filed Vital Signs Vital Sign Reading Time Taken Comments Blood Pressure 164/94 06/01/2016 8:57 AM PDT LA Pulse 111 06/01/2016 8:57 AM PDT Temperature 36.3 ??C (97.3 ??F) 12/09/2015 3:17 PM PD T Respiratory Rate 18 06/01/2016 8:57 AM PDT Oxygen Saturation 95% 06/01/2016 8:57 AM PDT Ra Inhaled Oxygen Concentration - - Weight 83 kg (183 lb) 06/01/2016 8:57 AM PDT Height 167.6 cm (5' 6) 06/01/2016 8:57 AM PDT Body Mass Index 29.54 06/01/2016 8:57 AM PDT Plan of Treatment Not on file Advance Directives Documents on File Type Date Recorded Patient Director Bioinformatics Expl anation Advance/Healthcare Directive 12/09/2015 9:48 AM Care Teams Electric Motor Mechanic Relationship Specialty Start Date End Date Mtiesh Benson DO PCP - General Family Practice 06/01/16
--- OUTSIDE RECORDS SUMMARY | 2024-01-28 12:23 | XMS_ITS | Clinical Summary ---
Author Organization [facility] Address [address] [place] [address] Care Team Providers Care Human Resource Internship Name Role Phone Mitesh Benson Primary Care Provider [phone] Allergies Active Allergy Reactions Criticality Noted Date [...] 06/01/2016 8:57 AM PDT Plan of Treatment Health Maintenance Due Date Last Done Comments AAA Screening 1955 CT Colonography 1955 Colonoscopy 1955 Colorectal Cancer Screening 1955 FIT / FOBT 1955 FIT-DNA 1955 Hepatitis C Ab Screening 1955 Sigmoidoscopy 1955 Depression Screening (PHQ/EPDS) 1967 Tobacco Cessation Counseling 1967 Lipid Screening 1990 Zoster Vaccine (1 of 2) 2005 RSV Vaccine (1 - 1-dose 60+ series) 2015 Pneumo Vaccine 65+ yrs (1 of 1 - PCV) 01/04/2020 COVID-19 Vaccine ( - 2022-2 4 season) 2023 Influenza Vaccine (Season Ended) 2024 Tetanus Vaccine 06/20/2025 06/20/2015 Hepatitis A Vaccine Aged Out No longe r eligible based on patient's age to complete this topic Hepatitis B Vaccine Aged Out No longe r eligible based on patient's age to complete this topic Hib Vaccine Aged Out No longer eligi ble based on patient's age to complete this topic Meningococcal ACWY Vaccine Aged Out N o longer eligible based on patient's age to complete this topic Advance Directives Documents on File Type Date Recorded Patient Casket Inspector Expl anation Advance/Healthcare Directive 12/09/2015 9:48 AM Care Teams Human Resource Internship Relationship Specialty Start Date End Date Mitesh Benson DO PCP - General Family Practice 06/01/16
[2024-01-28 12:38] LABS: Albumin* 4.4 g/dL (3.3-5.0)
[2024-01-28 12:40] LABS: INR 0.96 (0.91-1.10); Prothrombin Time 13.3 Seconds
[2024-01-28 12:41] LABS: Alanine Aminotransferase* 30 U/L (4-50); Alkaline Phosphatase* 79 U/L (40-150); Aspartate Amino Transferase* 29 U/L (12-35); Bilirubin Direct* 0.3 mg/dL (0.0-0.5); Bilirubin Total* 1.3 mg/dL (0.1-1.5); Magnesium* 2.3 mg/dL (1.5-2.6); Partial Thromboplastin Time* 33 Seconds (23-33); Total Protein* 6.9 g/dL (6.0-8.3)
[2024-01-28 12:54] LABS: NT Pro B Type NatriureticPept* 207 pg/mL; Troponin I* < 0.01 ng/mL (0.01-0.04)
[2024-01-28 13:14] LABS: Est. Creatinine Clearance* 62.91; Estimated Glomerular Filt Rate 81 ml/min
--- NOTE | 2024-01-28 14:09 | CRLHL7_ITS ---
For Patients: As a result of the Cures Act, medical imaging exams and procedure reports are released immediately into your electronic medical record. You may view this report before your referring provider. If you have questions, please contact your health care provider. Indication: Vertigo. Technique: Multiplanar, multisequence MRI of the brain was performed without intravenous contrast. Comparison: CT head 01/28/2024. Findings: Mild thinning of the corpus callosum. The pituitary gland clivus appear intact. Mild degenerative change visualized upper cervical spine. There is no restricted diffusion. No intracranial hemorrhage. The ventricles are proportionate to the cerebral sulci. The 4th ventricle appears midline. The basal cisterns appear patent. No abnormal extra-axial fluid collection identified. Mild parenchymal volume loss. Moderate T2 FLAIR hyperintense foci within the subcortical and periventricular white matter, favored to represent chronic ischemic microvascular disease. Small chronic lacunar infarct right thalamus. There is no intracranial mass, abnormal mass-effect or midline shift identified. Major intracranial vascular flow voids appear grossly intact. Both globes are preserved. Minimal paranasal sinus mucosal thickening. Impression: 1. No acute/subacute infarct. 2. Moderate chronic ischemic microvascular disease. 3. Small chronic right thalamic lacunar infarct. Dictated by Ty Jolly MD @ 01/28/2024 3:24:09 PM (Electronically Signed)
[2024-01-28 14:10] LABS: TSH With Reflex to FT4* 0.976 uIU/mL (0.270-4.200)
[2024-01-28] MEDS: MECLIZINE HCL 25 MG TABLET PO (16:05)
== END 2024-01-28 16:11 | disposition home or self-care (01) ==
PROVIDERS: Emergency Provider Family Medicine
DX: R42 Dizziness and giddiness (principal); E87.8 Other disorders of electrolyte and fluid balance, not elsewhere classified
CPT/HCPCS: 36415; 70450; 70551; 80076; 82565; 83735; 83880; 84443; 84484; 85610; 85730; 93005; 94761; 99284; 99285; A9270